=== PATIENT | female | born 1990 | race Hispanic/Latino ===

== ENCOUNTER 2018-10-09 09:17 | Emergency (ER) | payer OTHER, SELFPAY ==
--- NOTE | 2018-10-09 10:07 | ER ---
Nurse's Notes [facility] Name: Bianca Rogers Age: 28 yrs Sex: Female : 1990 Arrival Date: 10/09/2018 Time: 09:21 Bed 16 Private MD: Diagnosis: Influenza due to unidentified influenza virus Presentation: 10/09 09:25 Presenting complaint: Patient states: cough, vomiting and chills that began 3 days ago. ss Pt is concerned she may have the flu because all other members in the household have had the flu recently. Denies fever. Transition of care: patient was not received from another setting of care. Onset of symptoms was October 06, 2018. Risk Assessment: Do you want to hurt yourself or someone else? Patient reports no desire to harm self or others. Initial Sepsis Screen: Does the patient meet any 2 criteria? No. Patient's initial sepsis screen is negative. Does the patient have a suspected source of infection? No. Patient's initial sepsis screen is negative. Care prior to arrival: None. 09:25 Method Of Arrival: Ambulatory ss 09:25 Acuity: EULOGIO 3 Triage Assessment: 09:58 General: Behavior is calm, cooperative. General: Appears in no apparent distress. ls4 10:05 GI: Reports vomiting, not vomitting at this time. : No deficits noted. 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 - Social history:: Smoking status: Patient/guardian denies using tobacco. - Ebola Screening: : Patient denies exposure to infectious person Patient denies travel to an Ebola-affected area in the 21 days before illness onset. Screenin:56 Abuse screen: Denies threats or abuse. Denies injuries from another. Nutritional ls4 screening: No deficits noted. Tuberculosis screening: No symptoms or risk factors identified. Fall Risk None identified. Assessment: 09:57 General: Appears in no apparent distress. Neuro: No deficits noted. Cardiovascular: No ls4 deficits noted. Respiratory: No deficits noted. Musculoskeletal: No deficits noted. 10:04 Pain: Complains of pain in general Pain currently is 0 out of 10 on a pain scale. GI: ls4 Abdomen is non-distended, obese. Vital Signs: 09:26 BP 137 / 90; Pulse 79; Resp 16; Temp 97.5(TE); Pulse Ox 99% on R/A; Weight 79.38 kg; Height 4 ft. 10 in. (147.32 cm); Pain 8/10; 10:23 BP 128 / 70; Pulse 72; Resp 14; Temp 97.8(O); Pulse Ox 99% on R/A; Pain 7/10; ls4 09:26 Body Mass Index 36.57 (79.38 kg, 147.32 cm) ED Course: 09:21 Patient arrived in ED. as 09: Triage completed. ss 09: Arm band placed on right wrist. 09:56 Erica Desir RN is Primary Nurse. ls4 09:56 [facility]. pm1 09:56 Taran Dhillon MD is Attending Physician. pm1 09:56 Patient has correct armband on for positive identification. Bed in low position. Call ls4 light in reach. Side rails up X 1. Verbal reassurance given. 09:56 No provider procedures requiring assistance completed. ls4 10:22 Patient did not have IV access during this emergency room visit. ls4 Administered Medications: No medications were administered Outcome: 10:06 Discharge ordered by . pm1 10:22 Discharged to home ambulatory. ls4 10:22 Condition: good 10:22 Discharge instructions given to patient, Instructed on discharge instructions, follow up and referral plans. medication usage, safety practices, Demonstrated understanding of instructions, follow-up care, medications, Prescriptions given X 2. 10:23 Patient left the ED. ls4 Signatures: Ramila Williamson Shelby, RN RN Jose Marley NP POWER TOOL REPAIR TECHNICIAN pm1 Erica Desir RN RN ls4
--- NOTE | 2018-10-09 10:08 | EDPHYS ---
Physician Documentation [facility] Name: Bianca Rogers Age: 28 yrs Sex: Female : 1990 Arrival Date: 10/09/2018 Time: 09:21 Bed 16 Private MD: ED Physician Taran Dhillon HPI: 10/09 10:23 This 28 yrs old Female presents to ER via Ambulatory with complaints of Flu pm1 like symptoms. 10:23 The patient or guardian reports flu symptoms. Onset: The symptoms/episode pm1 began/occurred 3 day(s) ago. Modifying factors: The symptoms are alleviated by OTC meds, the symptoms are aggravated by nothing. Associated signs and symptoms: Pertinent positives: fever, sore throat, vomiting, Pertinent negatives: chest pain, diarrhea, ear ache, rhinorrhea. Severity of symptoms: in the emergency department the symptoms are unchanged. The patient has not experienced similar symptoms in the past. All her family members have had the flu in the past week. 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 - Social history:: Smoking status: Patient/guardian denies using tobacco. - Ebola Screening: : Patient denies exposure to infectious person Patient denies travel to an Ebola-affected area in the 21 days before illness onset. ROS: 10:23 Eyes: Negative for injury, pain, redness, and discharge. pm1 10:23 Neck: Negative for injury, pain, and swelling, Cardiovascular: Negative for chest pain, palpitations, and edema. 10:23 Back: Negative for injury and pain, : Negative for injury, bleeding, discharge, and swelling, MS/Extremity: Negative for injury and deformity, Skin: Negative for injury, rash, and discoloration, Neuro: Negative for headache, weakness, numbness, tingling, and seizure. 10:23 Constitutional: Positive for body aches, chills, fever. 10:23 ENT: Positive for rhinorrhea, sore throat, Negative for ear pain. 10:23 Respiratory: Positive for cough, Negative for shortness of breath, sputum production, wheezing. 10:23 Abdomen/GI: Positive for nausea and vomiting, Negative for abdominal pain, diarrhea, constipation. Exam: 10:23 Constitutional: This is a well developed, well nourished patient who is awake, alert, pm1 and in no acute distress. Head/Face: Normocephalic, atraumatic. Eyes: Pupils equal round and reactive to light, extra-ocular motions intact. Lids and lashes normal. Conjunctiva and sclera are non-icteric and not injected. Cornea within normal limits. Periorbital areas with no swelling, redness, or edema. ENT: Nares patent. No nasal discharge, no septal abnormalities noted. Tympanic membranes are normal and external auditory canals are clear. Oropharynx with no redness, swelling, or masses, exudates, or evidence of obstruction, uvula midline. Mucous membranes moist. Neck: Trachea midline, no thyromegaly or masses palpated, and no cervical lymphadenopathy. Supple, full range of motion without nuchal rigidity, or vertebral point tenderness. No Meningismus. Chest/axilla: Normal chest wall appearance and motion. Nontender with no deformity. No lesions are appreciated. Cardiovascular: Regular rate and rhythm with a normal S1 and S2. No gallops, murmurs, or rubs. Normal PMI, no JVD. No pulse deficits. Respiratory: Lungs have equal breath sounds bilaterally, clear to auscultation and percussion. No rales, rhonchi or wheezes noted. No increased work of breathing, no retractions or nasal flaring. Abdomen/GI: Soft, non-tender, with normal bowel sounds. No distension or tympany. No guarding or rebound. No evidence of tenderness throughout. Back: No spinal tenderness. No costovertebral tenderness. Full range of motion. Skin: Warm, dry with normal turgor. Normal color with no rashes, no lesions, and no evidence of cellulitis. MS/ Extremity: Pulses equal, no cyanosis. Neurovascular intact. Full, normal range of motion. 10:23 Neuro: Orientation: is normal, Motor: is normal, moves all fours. Vital Signs: 09:26 BP 137 / 90; Pulse 79; Resp 16; Temp 97.5(TE); Pulse Ox 99% on R/A; Weight 79.38 kg; ss Height 4 ft. 10 in. (147.32 cm); Pain 8/10; 10:23 BP 128 / 70; Pulse 72; Resp 14; Temp 97.8(O); Pulse Ox 99% on R/A; Pain 7/10; ls4 09:26 Body Mass Index 36.57 (79.38 kg, 147.32 cm) MDM: 09:56 Patient medically screened. pm1 10:04 Data reviewed: vital signs. Data interpreted: Pulse oximetry: on room air is 99 %. pm1 Interpretation: normal. Counseling: I had a detailed discussion with the patient and/or guardian regarding: the historical points, exam findings, and any diagnostic results supporting the discharge/admit diagnosis, the need for outpatient follow up, to return to the emergency department if symptoms worsen or persist or if there are any questions or concerns that arise at home. Administered Medications: No medications were administered Disposition: 14:16 Co-signature as Attending Physician, Taran Dhillon MD I agree with the assessment and kdr plan of care. Disposition: 10/09/18 10:06 Discharged to Home. Impression: Influenza due to unidentified influenza virus. - Condition is Stable. - Discharge Instructions: Influenza, Adult, Form - Return To Work. - Prescriptions for Zofran 4 mg Oral Tablet - take 1 tablet by ORAL route every 12 hours As needed; 20 tablet. Guaifenesin AC 10- 100 mg/5 mL Oral Liquid - take 10 milliliter by ORAL route every 4 hours As needed; 240 milliliter. - Medication Reconciliation Form, Thank You Letter, Antibiotic Education, Prescription Opioid Use, Work release form form. - Follow up: Emergency Department; When: As needed; Reason: Worsening of condition. Follow up: Private Physician; When: 2 - 3 days; Reason: Recheck today's complaints, Continuance of care, Re-evaluation by your physician. - Problem is new. - Symptoms have improved. Signatures: Taran Dhillon MD MD [facility] Katy Lee RN RN Jose Marley, EZEQUIEL LICENSE ISSUER pm1 Erica Desir, SAMANTHA RN ls4 Corrections: (The following items were deleted from the chart) 10:23 10:06 10/09/2018 10:06 Discharged to Home. Impression: Influenza due to unidentified ls4 influenza virus. Condition is Stable. Forms are Medication Reconciliation Form, Thank You Letter, Antibiotic Education, Prescription Opioid Use. Follow up: Emergency Department; When: As needed; Reason: Worsening of condition. Follow up: Private Physician; When: 2 - 3 days; Reason: Recheck today's complaints, Continuance of care, Re-evaluation by your physician. Problem is new. Symptoms have improved. pm1
[2018-10-09 10:45] VITALS: BP 128/70; TEMP 97.8; O2SAT 99
== END 2018-10-09 10:23 | disposition home or self-care (01) ==
LOC: ER 09:17
DX: J11.1 Influenza due to unidentified influenza virus with other respiratory manifestations (principal)
CPT/HCPCS: 99282

== ENCOUNTER 2022-08-25 17:25 | Emergency (ER) | payer BC, SELFPAY ==
--- OUTSIDE RECORDS SUMMARY | 2022-08-25 17:28 | XMS REPORT | Continuity of Care Document ---
:[address] [facility] t Address [address] [facility] [address] [place] [id number] Care Team Providers Name Role Phone Lauri Bailey Attending Clinician Unavailable Payers Payer Name Policy Type Policy Number Effective Date Expiration Date S ource Problems This patient has no known problems. Allergies, Adverse Reactions, Alerts Allergy Allergy Status Severity Reaction(s) Onset Inactive Treating Comm ents Source Name Type Date Date Clinician No Known DA Active U [facility] Allergie 07-26 [facility] 00:00: [facility] [place] 00 [facility] No Known DA Active U [facility] Allergie 07-26 [facility] 00:00: [facility] [place] 00 [facility] Medications This patient has no known medications. Procedures Procedure Date / Time Performed Performing Clinician Magan glynn [id number] 2020-07-29 00:00:00 [email or web address] [facility] Encounters Start End Encounter Admission Attending Care Care Encounter Source Date/Time Date/Time Type Type Clinicians Facility Department ID 2020-07-29 Inpatient TRICIA Bailey DAYS [id number] [facility] 07:30:00 Lauri Dahl [facility] 2022-05-08 2022-05-08 Outpatient [facility] [id number] Paul 11:26:31 11:26:31 [id number] F Atul 2022-02-09 2022-02-09 Outpatient [facility] Paul 11:04:00 11:04:00 [id number] F Atul Results Test Description Test Time Test Comments Results Result Comments Source COMPREHENSIVE METABOLIC PANEL 2020-08-06 06:20:00 Test Item Value Reference Range Interpretation Comme nts SODIUM (test code = NA) 138 mmol/L 136-145 N Plea se note: New Reference Range May 2020 POTASSIUM (test code = K) 4.2 mmol/L 3.5-5.1 N CHLORIDE (test code = CL) 104 mmol/L 98-[address] ease note: New Reference Range May 2020 CARBON DIOXIDE (test code = 30 mmol/L 20-31 N Please note: New Reference CO2) Range May 2020 GLUCOSE (test code = GLU) 93 mg/dL 74-[address] ease note: New Reference Range May 2020 BLOOD UREA NITROGEN (test 19 mg/dL 9-[address] ease note: New Reference code = BUN) Range May 2020 GLOMERULAR FILTRATION RATE >=60 max estimate >60 The estimated glomerular (test code = GFR) filtration rate is computed usingpatient ra ce, age (>18), sex, and serum creatinine. If anyof the needed data george ments are missing the Lab oratory cannot compute an estimation of the glomerul ar filtration rate. CREATININE (test code = 0.60 mg/dL 0.55-1.02 N Plea se note: New Reference CREAT) Range May 2020 TOTAL PROTEIN (test code = 7.4 g/dL 5.7-8.2 N P lease note: New Reference PROT) Range May 2020 ALBUMIN (test code = ALB) 4.6 g/dL 3.2-4.8 N Pl ease note: New Reference Range May 2020 CALCIUM (test code = CA) 9.7 mg/dL 8.7-10.4 N Ple ase note: New Reference Range May 2020 BILIRUBIN TOTAL (test code 0.2 mg/dL 0.3-1.2 L P lease note: New Reference = BILT) Range May 2020 SGOT/AST (test code = AST) 18 U/L <34 N P lease note: New Reference Range May 2020 SGPT/ALT (test code = ALT) 20 U/L 10-49 N P lease note: New Reference Range May 2020 ALKALINE PHOSPHATASE (test 71 U/L 46-116 N P lease note: New Reference code = ALKP) Range May 2020 VITAMIN B1 (THIAMINE)2020-08-06 06:20:00 Test Item Value Reference Range Interpretation Comments VITAMIN B1 158.4 nmol/L 66.5-200.0 Performed At: B N (THIAMINE) (test [facility] code = VITB1) [address] [id number] ra Griselda FARRIS Ph:[phone] SURGICAL [id number] 08:40:00 Test Item Value Reference Range Interpretation Comments SURGICAL SPECIMENS (test code = SURG) RUN DATE: 08/03/20 [facility] - LAB PAGE 1 RUN TIME: 840 Specimen Inquiry RUN USER: INTERFACE PATIENT: JIMMY OLMOS LOC: [address] B U #: [id number] AGE/SX: 29/ ROOM: [facility] RE07/29/20REG DR: Lauri Bailey MD : [birth year] BED: 1 DIS: 07/30/20 STATUS: DIS IN TLOC: SPEC #: [id number] RECD: 07/29/20 STATUS: BEATRIZ CONWAY #: [id number] HAYLEE: 07/29/[address] [facility] [address]: Lauri Bailey MD ENTERED: 07/29/20 SP TYPE: SURG OTHR DR: Anika,Doc ORDERED: PATHGM5, PATH SPEC, H E STAIN HISTOLOGY: TISSUE ID BLK PCS JORGE LEV / PROCEDURE DISPOSITION ____ ___ ___ ___ ___ STOMACH RESECT A 1 1 TISSUES: A. STOMACH SUBTOTAL RESECTION - Partial Stomach CLINICAL HISTORY Morbid obesity. FINAL DIAGNOSIS STOMACH, PARTIAL GASTRECTOMY: - NO DIAGNOSTIC ABNORMALITY IS IDENTIFIED CPT: 81052 GROSS DESCRIPTION Received in formalin labeled with the patient's name, medical record number, and "partial stomach" is an unopened 20.0 x 4.0 cm segment of stomach. The omentum is absent. The lesser curvature has a full-length staple line. The serosa is smooth pink. The mucosa does not have any discrete lesions. Machine I Coremaker sections are submitted in cassette A. /annette MICROSCOPIC DESCRIPTION Performed. -- Signed SIGNATURE ON FILE Rahel Gonzalez MD 08/03/20 [id number] END OF REPORT BASIC METABOLIC [id number] 06:30:00 Test Item Value Reference Range Interpretation Comments SODIUM (test code 136 mmol/L 136-145 N Please not e: New = NA) Reference Range May 2020 POTASSIUM (test 3.7 mmol/L 3.5-5.1 N code = K) CHLORIDE (test 105 mmol/L 98-107 N Please note: New code = CL) Reference Range May 2020 CARBON DIOXIDE 24 mmol/L 20-31 N Please note: New (test code = CO2) Reference Range May 2020 GLUCOSE (test code 84 mg/dL 74-106 N Please no te: New = GLU) Reference Range May 2020 BLOOD UREA 10 mg/dL 9-23 N Please note: Ne w NITROGEN (test Reference Ran ge Feb code = BUN) 2020 GLOMERULAR >=60 max >60 The estimated FILTRATION RATE estimate glomerular (test code = GFR) filtration rate is computed usingpatient ra ce, age (>18), sex, and serum creatinin e. If anyof the neede d data elements a re missing the Laboratory lance ot compute an estimation of t he glomerular filtration rate . CREATININE (test 0.60 mg/dL 0.55-1.02 N Please note : New code = CREAT) Reference Rang e May 2020 CALCIUM (test code 8.7 mg/dL 8.7-10.4 N Please no te: New = CA) Reference Range May 2020 CBC W/AUTO [id number] 05:48:00 Test Item Value Reference Range Interpretation Comments WHITE BLOOD CELL (test code = 9.9 x10 3/uL 4.8-10.8 N WBC) RED BLOOD CELL (test code = 4.14 x10 6/uL 4.20-5.40 L RBC) HEMOGLOBIN (test code = HGB) 11.4 g/dL 12.0-16.0 L HEMATOCRIT (test code = HCT) 35.2 % 37.0-47.0 L MEAN CELL VOLUME (test code = 85.0 fL 81.0-99.0 N MCV) MEAN CELL HGB (test code = MCH) 27.5 pg 27-31 N MEAN CELL HGB CONCENTRATION 32.4 G/DL 33-36.5 L (test code = MCHC) RED CELL DISTRIBUTION WIDTH 13.5 % 12.9-16.9 N (test code = RDW) PLATELET COUNT (test code = 328 x10 3/uL 150-440 N PLT) MEAN PLATELET VOLUME (test code 10.5 fL 8.9-12.4 N = MPV) NEUTROPHIL % (test code = NT%) 63.3 % 42.2-75.2 N LYMPHOCYTE % (test code = LY%) 30.8 % 20.5-51.1 N MONOCYTE % (test code = MO%) 5.4 % 1.7-9.3 N EOSINOPHIL % (test code = EO%) 0.1 % 0.0-7.0 N BASOPHIL % (test code = BA%) 0.1 % 0-2.5 N NEUTROPHIL # (test code = NT#) 6.26 x10 3/uL 1.80-7.70 N LYMPHOCYTE # (test code = LY#) 3.04 x10 3/uL 1.00-4.80 N MONOCYTE # (test code = MO#) 0.53 x10 3/uL 0.00-0.80 N EOSINOPHIL # (test code = EO#) 0.01 x10 3/uL 0.00-0.45 N BASOPHIL # (test code = BA#) 0.01 x10 3/uL 0.0-0.20 N UA RFLX MICR CULT IF [id number] 06:58:00 Test Item Value Reference Range Interpretation Comments UA COLOR (test code = COLU) YELLOW DISCRIPT YELLOW UA APPEARANCE (test code = CLEAR DISCRIPT CLEAR APPU) UA GLUCOSE DIPSTICK (test NEGATIVE mg/dL NEGATIVE code = DGLUU) UA BILIRUBIN DIPSTICK (test SMALL NEGATIVE A code = BILU) UA KETONE DIPSTICK (test code 15 mg/dL NEGATIVE A = KETU) UA SPECIFIC GRAVITY (test >=1.030 1.005-1.030 code = SGU) UA BLOOD DIPSTICK (test code NEGATIVE NEGATIVE = TENNILLE) UA PH DIPSTICK (test code = 6.0 5.0-9.0 NENA) UA PROTEIN DIPSTICK (test NEGATIVE mg/dL NEGATIVE code = PROU) UA UROBILINOGEN DIPSTICK 0.2 mg/dL 0.2-1.0 (test code = URO) UA NITRITE DIPSTICK (test NEGATIVE NEGATIVE code = FABIANA) UA LEUKOCYTE ESTERASE TRACE NEGATIVE A DIPSTICK (test code = LEUU) UA WBC (test code = WBCU) 6-10 #WBC/HPF 0-2 A UA RBC (test code = RBCU) 0-2 #RBC/HPF 0-2 UA BACTERIA (test code = 1+ /HPF NONE-TRACE A BACU) UA SQUAMOUS CELLS (test code 2+ /LPF NONE-TRACE A = SQU) UA MUCUS (test code = MUCU) 1+ /LPF NONE SEEN A UA AMORPHOUS SEDIMENT (test PRESENT /HPF NONE SEEN code = AMORU) Indication for culture: Dysuria/FrequencyUA RFLX MICR CULT IF INDICATED 2020-07-29 06:42:00 Test Item Value Reference Range Interpretation Comments UA COLOR (test code = COLU) YELLOW DISCRIPT YELLOW UA APPEARANCE (test code = CLEAR DISCRIPT CLEAR APPU) UA GLUCOSE DIPSTICK (test NEGATIVE mg/dL NEGATIVE code = DGLUU) UA BILIRUBIN DIPSTICK (test SMALL NEGATIVE A code = BILU) UA KETONE DIPSTICK (test code 15 mg/dL NEGATIVE A = KETU) UA SPECIFIC GRAVITY (test >=1.030 1.005-1.030 code = SGU) UA BLOOD DIPSTICK (test code NEGATIVE NEGATIVE = TENNILLE) UA PH DIPSTICK (test code = 6.0 5.0-9.0 NENA) UA PROTEIN DIPSTICK (test NEGATIVE mg/dL NEGATIVE code = PROU) UA UROBILINOGEN DIPSTICK 0.2 mg/dL 0.2-1.0 (test code = URO) UA NITRITE DIPSTICK (test NEGATIVE NEGATIVE code = FABIANA) UA LEUKOCYTE ESTERASE TRACE NEGATIVE A DIPSTICK (test code = LEUU) UA WBC (test code = WBCU) #WBC/HPF 0-2 UA RBC (test code = RBCU) #RBC/HPF 0-2 UA BACTERIA (test code = /HPF NONE-TRACE BACU) UA SQUAMOUS CELLS (test code /LPF NONE-TRACE = SQU) Indication for culture: Dysuria/FrequencyNovel Coronavirus 2018 Inhouse 2020-07-28 00:07:00 Test Item Value Reference Range Interpretation Comments Novel Coronavirus Not Detected Not Detected Testing wa s performed 2018 Inhouse (test using the [employer] code = COVNONPUI) SARS-CoV-2 assay.This nucleic acid amplification t est was developed and itsperformance characteristics determined by Amanda ramirez. Nucleic acid amplification t ests include RT-PCR and TMA. This test has n ot been FDA cleared ora pproved. This test has b een authorized by William GARRETT under anEmergency Use Authorization ( EUA). This test is onlyauthorized for the duration of long e the declaration thatcircumstanc es exist justifying the authorization o f theemergency us e of in vitro diagnosti c tests for detection [id number] vi satya and/or diagnosi s of COVID-19 infect ionunder section 564(b)( 1) of the Act, 21 U.S .C. 360bbb-3(b)(1), unless the authorizati on is terminated or revokedsooner.W hen diagnostic test ing is negative, the possibility of afalse negative result should be considered i n the contextof a pat ient's recent exposure s and the presence of clinical signs and sympt oms consistent with COVID-19. Anind ividual without symptom s of COVID-19 and wh o is notshedding ELVIA S-CoV-2 virus would exp ect to have a negative (not detected) resul t in this assay. - XR CHEST 1 [id number] 13:23:00 [facility] 1990 Sex: FPatient Name: JIMMY OLMOS Unit No: [id number] EXAMS: CPT CODE: [id number] XR CHEST 1 V 97289 EXAM: XR Chest 1 View INDICATION: PREOP LOCATION CODE: A1 COMPARISON: None available. TECHNIQUE: Frontal view of the chest was obtained. FINDINGS: The lungs are clear. There is no pleural effusion or pneumothorax. The cardiomediastinal silhouette is unremarkable. No acute osseous abnormality is identified. IMPRESSION: No acute cardiopulmonary abnormality. at 1323 Reported and signed by: SURI LUNDY M.D. CC: Lauri Bailey MD Technologist: Mohit Chan Time: DAP (Gy m2): Air Kerma (mGy): Trscr Dt/Tm: 07/26/2020 (1323) by:[email or web address] Printed Date/Time: 07/26/2020 (1326) Name: JIMMY OLMOS [facility] Phys: [id number] - Lauri Bailey MD [address] : 1990 Age:29 Sex: F [address] [id number] Loc: P.SRG Exam Date: 07/26/2020 Status: PRE IN PH: FAX: PAGE 1 Signed ReportVITAMIN D [id number] 12:49:00 Test Item Value Reference Range Interpretation Comments VITAMIN D 18.20 ng/mL 7-44.0 N Please note: N ew 25-HYDROXY (test Reference R yo May 2020 code = VITD25) INTERPRETATIV E DATA:Suggester guidelines for Vitamin D Levels in serum Vitamin D Status Range, Adult Range, Pediatri c ng/mL ng/mLDeficiency <20 <15Insufficienc y 20-<30 15-<20 Suffcien cy 30-100 20-100 COMPREHENSIVE METABOLIC [id number] 12:34:00 Test Item Value Reference Range Interpretation Comments SODIUM (test code = 138 mmol/L 136-145 N Please n ote: New NA) Reference Range May 2020 POTASSIUM (test 4.2 mmol/L 3.5-5.1 N code = K) CHLORIDE (test code 104 mmol/L 98-107 N Please n ote: New = CL) Reference Range May 2020 CARBON DIOXIDE 30 mmol/L 20-31 N Please note: New (test code = CO2) Reference Range May 2020 GLUCOSE (test code 93 mg/dL 74-106 N Please no te: New = GLU) Reference Range May 2020 BLOOD UREA NITROGEN 19 mg/dL 9-23 N Please n ote: New (test code = BUN) Reference Range May 2020 GLOMERULAR >=60 max >60 The estimated FILTRATION RATE estimate glomerular (test code = GFR) filtration rate is computed usingpatient ra ce, age (>18), sex, and serum creatinin e. If anyof the ne eded data elements a re missing the Laboratory lance ot compute an estimation of t he glomerular filtration rate . CREATININE (test 0.60 mg/dL 0.55-1.02 N Please note : New code = CREAT) Reference Rang e May 2020 TOTAL PROTEIN (test 7.4 g/dL 5.7-8.2 N Please n ote: New code = PROT) Reference Range May 2020 ALBUMIN (test code 4.6 g/dL 3.2-4.8 N Please no te: New = ALB) Reference Range May 2020 CALCIUM (test code 9.7 mg/dL 8.7-10.4 N Please no te: New = CA) Reference Range May 2020 BILIRUBIN TOTAL 0.2 mg/dL 0.3-1.2 L Please note: New (test code = BILT) Reference Range May 2020 SGOT/AST (test code 18 U/L <34 N Please n ote: New = AST) Reference Range May 2020 SGPT/ALT (test code 20 U/L 10-49 N Please n ote: New = ALT) Reference Range May 2020 ALKALINE 71 U/L 46-116 N Please note: Ne w PHOSPHATASE (test Reference Range Feb code = ALKP) 2020 VITAMIN B1 (THIAMINE)2020-07-26 12:34:00 Test Item Value Reference Range Interpretation Comments VITAMIN B1 (THIAMINE) (test code = VITB1) UR HCG [id number] 12:03:00 Test Item Value Reference Range Interpretation Comments UR HCG QUAL (test code = HCGQLU) NEGATIVE NEGATIVE PROTHROMBIN [id number] 11:55:00 Test Item Value Reference Range Interpretation Comments PROTHROMBIN TIME 12.8 SECONDS 10.3-12.9 N PATIENT (test code = PTP) INTERNATIONAL 1.13 INR UNIT 0.9-1.11 H The INR is us eful only NORMAL RATIO (test for monit oring code = INR) anticoagulant therapy.It may be unreliable in t he initial phase o f antigoagulation and in unstable patien ts. Indication for Anticoagulation Recommended INR 1. Prevention of v enous thomboembolism 2.0-3.0in high- risk patients; treat ment of venousthrombosi s and pulmonary embol ism aftera course o f heparin; preven tion of systemicembolis m in a variety of cond itions, including atria l fibrillation an d prothetic tissu e heart valves, 2. Pros thetic mechanical hear t valves; 2.5-3.5recurren t systemic emboli sm. THROMBOPLASTIN TIME [id number] 11:55:00 Test Item Value Reference Range Interpretation Comments THROMBOPLASTIN TIME 31.9 SECONDS 23.8-34.8 N INTERPRE TATIVE PARTIAL (test code = DATA: erapeutic PTT) range: Unfractionated heparin:55 - 80 seconds Argatroban:1.5 to 3 times the basel ine PTT CBC W/AUTO [id number] 11:37:00 Test Item Value Reference Range Interpretation Comments WHITE BLOOD CELL (test code = 8.8 x10 3/uL 4.8-10.8 N WBC) RED BLOOD CELL (test code = 4.85 x10 6/uL 4.20-5.40 N RBC) HEMOGLOBIN (test code = HGB) 13.2 g/dL 12.0-16.0 N HEMATOCRIT (test code = HCT) 40.9 % 37.0-47.0 N MEAN CELL VOLUME (test code = 84.3 fL 81.0-99.0 N MCV) MEAN CELL HGB (test code = MCH) 27.2 pg 27-31 N MEAN CELL HGB CONCENTRATION 32.3 G/DL 33-36.5 L (test code = MCHC) RED CELL DISTRIBUTION WIDTH 13.4 % 12.9-16.9 N (test code = RDW) PLATELET COUNT (test code = 359 x10 3/uL 150-440 N PLT) MEAN PLATELET VOLUME (test code 10.3 fL 8.9-12.4 N = MPV) NEUTROPHIL % (test code = NT%) 65.7 % 42.2-75.2 N LYMPHOCYTE % (test code = LY%) 29.8 % 20.5-51.1 N MONOCYTE % (test code = MO%) 3.8 % 1.7-9.3 N EOSINOPHIL % (test code = EO%) 0.2 % 0.0-7.0 N BASOPHIL % (test code = BA%) 0.2 % 0-2.5 N NEUTROPHIL # (test code = NT#) 5.78 x10 3/uL 1.80-7.70 N LYMPHOCYTE # (test code = LY#) 2.62 x10 3/uL 1.00-4.80 N MONOCYTE # (test code = MO#) 0.33 x10 3/uL 0.00-0.80 N EOSINOPHIL # (test code = EO#) 0.02 x10 3/uL 0.00-0.45 N BASOPHIL # (test code = BA#) 0.02 x10 3/uL 0.0-0.20 N
[2022-08-25 18:28] LABS: Urine Bacteria None Seen /HPF (<20); Urine Bilirubin NEGATIVE (Negative); Urine Blood Negative (Negative); Urine Clarity Clear (Clear); Urine Color Light-Yellow (Yellow); Urine Glucose NEGATIVE (Negative); Urine Mucus Slight /HPF (None Seen); Urine Protein NEGATIVE (Negative); Urine RBC None Seen /HPF (None Seen); Urine Urobilinogen Normal (Normal); Urine pH 6.5 (5.0-7.0)
[2022-08-25] MEDS ORDERED: LIDOCAINE 4% PATCH ONE (18:28)
[2022-08-25] MEDS ORDERED: KETOROLAC 30 MG/ML INJ ONE (18:28)
--- NOTE | 2022-08-25 19:38 | EDPHYS ---
Physician Documentation [facility] Name: Bianca Rogers Age: 31 yrs Sex: Female : 1990 Arrival Date: 08/25/2022 Time: 17:25 Bed 5 Private MD: NISHI Physician Cordell Roth HPI: 08/25 18:10 This 31 yrs old Female presents to ER via Ambulatory with complaints of Back cp Pain. 18:10 The patient presents with pain that is acute, with no known mechanism of injury. The cp symptoms are located in the right subscapular area and right mid back. Onset: The symptoms/episode began/occurred 1 week(s) ago. The pain does not radiate. Associated signs and symptoms: Pertinent negatives: abdominal pain, chest pain, dysuria, fever, headache, hematuria, incontinence, numbness, weakness. The problem was sustained from unknown cause. Modifying factors: the patient symptoms are aggravated by movement. Severity of symptoms: in the emergency department the symptoms are unchanged, despite home interventions. 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 - Social history:: Smoking status: Patient denies any tobacco usage or history of. ROS: 18:15 Constitutional: Negative for body aches, chills, fever, poor PO intake. cp 18:15 Eyes: Negative for injury, pain, redness, and discharge. cp 18:15 ENT: Negative for drainage from ear(s), ear pain, sore throat, difficulty swallowing, difficulty handling secretions. 18:15 Cardiovascular: Negative for chest pain, edema, palpitations. 18:15 Respiratory: Negative for cough, shortness of breath, wheezing. 18:15 Abdomen/GI: Negative for abdominal pain, nausea, vomiting, and diarrhea, constipation, bowel incontinence. 18:15 Back: Positive for pain at rest, pain with movement, of the right subscapular area and right mid back. 18:15 : Negative for urinary symptoms, bladder incontinence. 18:15 Skin: Negative for rash. 18:15 Neuro: Negative for altered mental status, headache, numbness, weakness. 18:15 All other systems are negative. Exam: 18:20 Constitutional: The patient appears in no acute distress, alert, awake, non-toxic, well cp developed, well nourished, uncomfortable. 18:20 Head/Face: Normocephalic, atraumatic. cp 18:20 Eyes: Periorbital structures: appear normal, Conjunctiva: normal, no exudate, no injection, Sclera: no appreciated abnormality, Lids and lashes: appear normal, bilaterally. 18:20 ENT: External ear(s): are unremarkable, Nose: is normal, Mouth: Lips: moist, Oral mucosa: pink and intact, moist, Posterior pharynx: is normal, airway is patent, no erythema, no exudate. 18:20 Neck: ROM/movement: is normal, is supple, without pain, no range of motions limitations. 18:20 Chest/axilla: Inspection: normal. 18:20 Cardiovascular: Rate: normal, Rhythm: regular. 18:20 Respiratory: the patient does not display signs of respiratory distress, Respirations: normal, no use of accessory muscles, no retractions, labored breathing, is not present. 18:20 Abdomen/GI: Inspection: abdomen appears normal, Palpation: abdomen is soft and non-tender, in all quadrants. 18:20 Back: pain, that is moderate, of the right subscapular area and right mid back, ROM is painful, with all movement. 18:20 Skin: cellulitis, is not appreciated, no rash present. 18:20 Neuro: Orientation: to person, place \T\ time. Mentation: is normal, Motor: moves all fours, strength is normal, Sensation: is normal. Vital Signs: 17:44 BP 142 / 98; Pulse 63; Resp 16; Temp 98.3(O); Pulse Ox 100% on R/A; Height 4 ft. 10 in. vg1 ; MDM: 17:52 Patient medically screened. estuardo 18:30 Differential diagnosis: Basilar Pneumonia Cholelithiasis Pyelonephritis ruptured disc, cp Ureterolithiasis vertebral fracture, muscle strain. 19:37 Data reviewed: vital signs, nurses notes, lab test result(s), radiologic studies, plain cp films. Independent interpretation of the following test(s) in the Emergency Department X-Ray: My interpretation is chest image negative for infiltrates. 19:37 Test considered but Not performed: Labs: cbc, bmp. CT: chest, abdomen/pelvis. cp Counseling: I had a detailed discussion with the patient and/or guardian regarding: the historical points, exam findings, and any diagnostic results supporting the discharge/admit diagnosis, lab results, radiology results, to return to the emergency department if symptoms worsen or persist or if there are any questions or concerns that arise at home. Response to treatment: the patient's symptoms have markedly improved after treatment, and as a result, I will discharge patient. 08/25 18:06 Order name: Urinalysis W/Microscopic; Complete Time: 18:35 cp 08/25 18:35 Interpretation: Reviewed. cp 08/25 18:06 Order name: PREGU; Complete Time: 18:35 cp 08/25 19:00 Order name: XRAY Chest (1 view) cp Administered Medications: 18:24 Drug: Lidoderm Topical Patch 5 % (700 mg/patch) 1 patches Route: Topical; Site: hb affected area; 18:59 Follow up: Response: No adverse reaction hb 18:59 Drug: Ketorolac IM 30 mg Route: IM; Site: left deltoid; hb Disposition Summary: 08/25/22 19:38 Discharge Ordered Location: Home cp Problem: new cp Symptoms: have improved cp Condition: Stable cp Diagnosis - Dorsalgia, unspecified cp Followup: cp - With: Private Physician - When: 2 - 3 days - Reason: Recheck today's complaints Discharge Instructions: - Discharge Summary Sheet cp - Acute Back Pain, Adult cp Forms: - Medication Reconciliation Form cp - Thank You Letter cp - Antibiotic Education cp - Prescription Opioid Use cp - Work release form vc1 Prescriptions: - Lidoderm 5 % Topical adhesive patch, medicated - apply 1 patch by TOPICAL route daily As needed leave on most painful area for cp up to 12 hrs; 10 patch; Refills: 0, Product Selection Permitted - Cyclobenzaprine 10 mg Oral Tablet - take 1 tablet by ORAL route every 8 hours As needed; 30 tablet; Refills: 0, cp Product Selection Permitted - Diclofenac Sodium 75 mg Oral Tablet Sustained Release - take 1 tablet by ORAL route 2 times per day; 30 tablet; Refills: 0, Product cp Selection Permitted Signatures: Dispatcher [employer] Cordell Araujo MD MD cha Page, Corey, PA PA cp Lori Hong, RN RN Izzy Pollack RN RN vg1 Corrections: (The following items were deleted from the chart) 08/26 16:14 16:12 Test considered but Not performed: Labs: cbc, bmp. CT: chest, abdomen/pelvis. cp cp 16:14 16:12 Counseling: I had a detailed discussion with the patient and/or guardian cp regarding: the historical points, exam findings, and any diagnostic results supporting the discharge/admit diagnosis, lab results, radiology results, to return to the emergency department if symptoms worsen or persist or if there are any questions or concerns that arise at home, cp 16:14 16:12 Response to treatment: the patient's symptoms have markedly improved after cp treatment, and as a result, I will discharge patient, cp
--- NOTE | 2022-08-25 19:38 | ER ---
Nurse's Notes [facility] Name: Bianca Rogers Age: 31 yrs Sex: Female : 1990 Arrival Date: 08/25/2022 Time: 17:25 Bed 5 Private MD: Diagnosis: Dorsalgia, unspecified Presentation: 08/25 17:44 Chief complaint: Patient states: back pain x 1 week, denies any s/s of urine issues, vg1 last BM was today. Coronavirus screen: Vaccine status: Patient reports receiving the 2nd dose of the covid vaccine. Client denies travel out of the [place] in the last 14 days. Ebola Screen: Patient negative for fever greater than or equal to 101.5 degrees Fahrenheit, and additional compatible Ebola Virus Disease symptoms Patient denies exposure to infectious person. Patient denies travel to an Ebola-affected area in the 21 days before illness onset. Initial Sepsis Screen: Does the patient meet any 2 criteria? No. Patient's initial sepsis screen is negative. Does the patient have a suspected source of infection? No. Patient's initial sepsis screen is negative. Risk Assessment: Do you want to hurt yourself or someone else? Patient reports no desire to harm self or others. Onset of symptoms was August 18, 2022. 17:44 Method Of Arrival: Ambulatory vg1 17:44 Acuity: EULOGIO 3 vg1 Triage Assessment: 17:46 General: Appears in no apparent distress. uncomfortable, Behavior is calm, cooperative. vg1 Pain: Complains of pain in back Pain currently is 5 out of 10 on a pain scale. Musculoskeletal: Circulation, motion, and sensation intact. [employer]: 17:46 LMP 08/06/2022 vg1 Historical: - Allergies: 17:46 No Known Allergies; vg1 - Home Meds: 17:46 None [Active]; vg1 - PMHx: 17:46 None; vg1 - PSHx: 17:46 None; vg1 - Immunization history:: Client reports receiving the 2nd dose of the Covid vaccine. - Social history:: Smoking status: Patient denies any tobacco usage or history of. Screenin:25 [facility] ED Fall Risk Assessment (Adult) Score/Fall Risk Level 0 - 2 = Low Risk hb Oriented to surroundings, Maintained a safe environment. Abuse screen: Denies threats or abuse. Denies injuries from another. Nutritional screening: No deficits noted. Tuberculosis screening: No symptoms or risk factors identified. Assessment: 18:25 General: Appears in no apparent distress. Behavior is calm, cooperative. Pain: Pain hb currently is 7 out of 10 on a pain scale. Neuro: Level of Consciousness is awake, alert, obeys commands, Oriented to person, place, time, situation. Cardiovascular: Patient's skin is warm and dry. Respiratory: Respiratory effort is even, unlabored, Respiratory pattern is regular, symmetrical. GI: No signs and/or symptoms were reported involving the gastrointestinal system. : No signs and/or symptoms were reported regarding the genitourinary system. EENT: No signs and/or symptoms were reported regarding the EENT system. Derm: Skin is pink, warm \T\ dry. Musculoskeletal: Reports RIGHT FLANK PAIN. Vital Signs: 17:44 BP 142 / 98; Pulse 63; Resp 16; Temp 98.3(O); Pulse Ox 100% on R/A; Height 4 ft. 10 in. vg1 ; ED Course: 17:27 Patient arrived in ED. ts1 17:42 Cordell Sarkar PA is PHCP. cp 17:42 Cordell Roth MD is Attending Physician. cp 17:46 Triage completed. vg1 17:46 Arm band placed on. vg1 18:24 Lori Hong, RN is Primary Nurse. hb 18:26 Patient has correct armband on for positive identification. hb 19:49 No provider procedures requiring assistance completed. Patient did not have IV access vc1 during this emergency room visit. 19:53 XRAY Chest (1 view) In Process Unspecified. EDMS Administered Medications: 18:24 Drug: Lidoderm Topical Patch 5 % (700 mg/patch) 1 patches Route: Topical; Site: hb affected area; 18:59 Follow up: Response: No adverse reaction hb 18:59 Drug: Ketorolac IM 30 mg Route: IM; Site: left deltoid; hb Medication: 18:26 VIS not applicable for this client. hb Outcome: 19:38 Discharge ordered by . cp 19:49 Discharged to home ambulatory. vc1 19:49 Condition: good 19:49 Discharge instructions given to patient, Instructed on discharge instructions, follow up and referral plans. medication usage, Demonstrated understanding of instructions, follow-up care, medications, Prescriptions given X 3. 19:50 Patient left the ED. vc1 Signatures: Dispatcher [employer] EDMS Cordell Sarkar PA PA cp Baxter, Heather, RN RN hb Garcia, Victoria, RN RN vg1 Elvi Syed RN RN vc1 Genie Menezes PAS PAS ts1
[2022-08-25 19:55] VITALS: BP 142/98; TEMP 98.3; O2SAT 100
--- NOTE | 2022-08-25 20:10 | RAD REPORT ---
EXAM DESCRIPTION: RAD - Chest Single View - 08/25/2022 7:51 pm CLINICAL HISTORY: back pain COMPARISON: No comparisons FINDINGS: Lines: None. Lungs: No evidence of edema or pneumonia. Pleural: No significant pleural effusions or pneumothorax. Cardiac: The heart size is within normal limits. Mediastinum: Within normal limits. Bones: No acute fractures. Other: None IMPRESSION: No acute cardiopulmonary disease.
== END 2022-08-25 19:50 | disposition home or self-care (01) ==
LOC: ER 17:25
DX: M54.9 Dorsalgia, unspecified (principal)
CPT/HCPCS: 81001; 81025; 71045; 96372; 99284; J2001

== ENCOUNTER 2023-12-16 20:55 | Emergency (ER) | payer BC ==
--- OUTSIDE RECORDS SUMMARY | 2023-12-16 20:58 | XMS REPORT | Continuity of Care Document ---
Author Name Unknown Address [address] [facility] [address] [place] [address] [facility] Address [address] [facility] [address] [place] [address] Care Team Providers Care [facility] Reverse Winder Name Role Phone Lauri Bailey Attending Clinician Unavailable Payers Payer Name Policy Type Policy Number Effective Date Expirati on Date Source Allergies, Adverse Reactions, Alerts Allergy Name Allergy Type Status Severity Reaction(s) Onset Date Inactive Date Treating Clinician Comments Source No Known Allergie s DA Active U 07-26 00:00: 00 [facility] No Known Allergie s DA Active U 07-26 00:00: 00 [facility] Procedures Procedure Date / Time Performed Performing Clinicia n Source [id number] 2020-07-29 00:00:00 PRIJO.[email or web address] [facility] Encounters Start Date/Time End Date/Time Encounter Type Admission Type Attending Clinicians Care Facility Care Department Encounter ID Source 2020-07-29 07:30:00 Inpatient Lauri Bailey [facility] DAYS [id number] [facility] 2022-05-08 11:26:31 2022-05-08 11:26:31 Outpatient SFA [id number] Paul Pollard 2022-02-09 11:04:00 2022-02-09 11:04:00 Outpatient [facility] [id number] Paul Pollard Results Test Description Test Time Test Comments Results Result Co mments Source VITAMIN B1 (THIAMINE)2020-08-06 06:20:00* Test Item Value Reference Range Interpretation Comme nts VITAMIN B1 (THIAMINE) (test code = VITB1) 158.4 nmol/L 66.5-200.0 Performed At: [facility] [address] [id number] Sanjai MD Ph:[phone] SURGICAL [id number] 08:40:00* Test Item Value Reference Range Interpretation Comme nts SURGICAL SPECIMENS (test code = SURG) RUN DATE: 08/03/20 [facility] LAB PAGE 1 RUN TIME: 0841 Specimen Inquiry RUN USER: INTERFACE PATIENT: JIMMY ROGERS LOC: P.5N POD B U #: [id number] AGE/SX: 29/ ROOM: [facility] RE07/29/20REG DR: Lauri Bailey MD : 86 BED: 1 DIS: 07/30/20 STATUS: DIS IN TLOC: SPEC #: [id number] RECD: 07/29/20 STATUS: BEATRIZ CONWAY #: [id number] HAYLEE: 07/29/[address] [facility] [address]: Lauri Bailey MD ENTERED: 07/29/20 [...] - NO DIAGNOSTIC ABNORMALITY IS IDENTIFIED CPT: 39307 GROSS DESCRIPTION Received in formalin labeled with the patient's name, medical record number, and "partial stomach" is an unopened 20.0 x 4.0 cm segment of stomach. The omentum is absent. The lesser curvature has a full-length staple line. The serosa is smooth pink. The mucosa does not have any discrete lesions. Orthopedic Designer sections are submitted in cassette A. /annette MICROSCOPIC DESCRIPTION Performed. -- Signed SIGNATURE ON FILE Rahel Gonzalez MD 08/03/20 8153 END OF REPORT BASIC METABOLIC [id number] 06:30:00* Test Item Value Reference Range Interpretation Comme nts SODIUM (test code = NA) 136 mmol/L 136-145 N Please note: New Reference Range May 2020 POTASSIUM (test code = K) 3.7 mmol/L 3.5-5.1 N CHLORIDE (test code = CL) 105 mmol/L 98-107 N Please note: New Reference Range May 2020 CARBON DIOXIDE (test code = CO2) 24 mmol/L 20-31 N Please note: N ew Reference Range May 2020 GLUCOSE (test code = GLU) 84 mg/dL 74-106 N Please note: New Reference Range May 2020 BLOOD UREA NITROGEN (test code = BUN) 10 mg/dL 9-23 N Please note: New Reference Range May 2020 GLOMERULAR FILTRATION RATE (test code = GFR) >=60 max estimate >60 The estimated glomerular filtration rate is computed usingpatient race, age (>18), sex, and serum creatinine. If anyof the needed data elements are missing the Laboratory cannot compute an estimation of the glomerular filtration rate. CREATININE (test code = CREAT) 0.60 mg/dL 0.55-1.02 N Please note: New Reference Range May 2020 CALCIUM (test code = CA) 8.7 mg/dL 8.7-10.4 N Please note: New Reference Range May 2020 CBC W/AUTO [id number] 05:48:00* Test Item Value Reference Range Interpretation Comme nts WHITE BLOOD CELL (test code = WBC) 9.9 x10 3/uL 4.8-10.8 N RED BLOOD CELL (test code = RBC) 4.14 x10 6/uL 4.20-5.40 L HEMOGLOBIN (test code = HGB) 11.4 g/dL 12.0-16.0 L HEMATOCRIT (test code = HCT) 35.2 % 37.0-47.0 L MEAN CELL VOLUME (test code = MCV) 85.0 fL 81.0-99.0 N MEAN CELL HGB (test code = MCH) 27.5 pg 27-31 N MEAN CELL HGB CONCENTRATION (test code = MCHC) 32.4 G/DL 33-36.5 L RED CELL DISTRIBUTION WIDTH (test code = RDW) 13.5 % 12.9-16.9 N PLATELET COUNT (test code = PLT) 328 x10 3/uL 150-440 N MEAN PLATELET VOLUME (test c ode = MPV) 10.5 fL 8.9-12.4 N NEUTROPHIL % (test code = NT%) 63.3 [...] 0.0-0.20 N UA RFLX MICR CULT IF [id number] 06:58:00* Test Item Value Reference Range Interpretation Comme nts UA COLOR (test code = COLU) YELLOW DISCRIPT YELLOW UA APPEARANCE (test code = APPU) CLEAR DISCRIPT CLEAR UA GLUCOSE DIPSTICK (test code = DGLUU) NEGATIVE mg/dL NEGATIVE UA BILIRUBIN DIPSTICK (test code = BILU) SMALL NEGATIVE A UA KETONE DIPSTICK (test cod e = KETU) 15 mg/dL NEGATIVE A UA SPECIFIC GRAVITY (test code = SGU) >=1.030 1.005-1.030 UA BLOOD DIPSTICK (test code = TENNILLE) NEGATIVE NEGATIVE UA PH DIPSTICK (test code = NENA) 6.0 5.0-9.0 UA PROTEIN DIPSTICK (test code = PROU) NEGATIVE mg/dL NEGATIVE UA UROBILINOGEN DIPSTICK (test code = URO) 0.2 mg/dL 0.2-1.0 UA NITRITE DIPSTICK (test code = FABIANA) NEGATIVE NEGATIVE UA LEUKOCYTE ESTERASE DIPSTICK (test code = LEUU) TRACE NEGATIVE A UA WBC (test code = WBCU) 6-10 #WBC/HPF 0-2 A UA RBC (test code = RBCU) 0-2 #RBC/HPF 0-2 UA BACTERIA (test code = BACU) 1+ /HPF NONE-TRACE A UA SQUAMOUS CELLS (test code = SQU) 2+ /LPF NONE-TRACE A UA MUCUS (test code = MUCU) 1+ /LPF NONE SEEN A UA AMORPHOUS SEDIMENT (test code = AMORU) PRESENT /HPF NONE SEEN Indication for culture: Dysuria/FrequencyUA RFLX MICR CULT IF INDICATED 2020-07-29 06:42:00* Test Item Value Reference Range Interpretation Comme nts UA COLOR (test code = COLU) YELLOW DISCRIPT YELLOW UA APPEARANCE (test code = APPU) CLEAR DISCRIPT CLEAR UA GLUCOSE DIPSTICK (test code = DGLUU) NEGATIVE mg/dL NEGATIVE UA BILIRUBIN DIPSTICK (test code = BILU) SMALL NEGATIVE A UA KETONE DIPSTICK (test cod e = KETU) 15 mg/dL NEGATIVE A UA SPECIFIC GRAVITY (test code = SGU) >=1.030 1.005-1.030 UA BLOOD DIPSTICK (test code = TENNILLE) NEGATIVE NEGATIVE UA PH DIPSTICK (test code = NENA) 6.0 5.0-9.0 UA PROTEIN DIPSTICK (test code = PROU) NEGATIVE mg/dL NEGATIVE UA UROBILINOGEN DIPSTICK (test code = URO) 0.2 mg/dL 0.2-1.0 UA NITRITE DIPSTICK (test code = FABIANA) NEGATIVE NEGATIVE UA LEUKOCYTE ESTERASE DIPSTICK (test code = LEUU) TRACE NEGATIVE A UA WBC (test code = WBCU) #WBC/HPF 0-2 UA RBC (test code = RBCU) #RBC/HPF 0-2 UA BACTERIA (test code = BACU) /HPF NONE-TRACE UA SQUAMOUS CELLS (test code = SQU) /LPF NONE-TRACE Indication for culture: Dysuria/FrequencyNovel Coronavirus 2019 Inhouse 2020-07-28 00:07:00* Test Item Value Reference Range Interpretation Comme nts Novel Coronavirus 2018 Inhouse (test code = COVNONPUI) Not Detected Not Detected Testing was pe rformed using the Aptima SARS-CoV-2 assay.This nucleic acid amplification test was developed and itsperformance characteristics determined by [facility]. Nucleic acid amplification tests include RT-PCR and TMA. This test has not been FDA cleared orapproved. This test has been authorized by FDA under anEmergency Use Authorization (EUA). This test is onlyauthorized for the duration of time the declaration thatcircumstances exist justifying the authorization of theemergency use of in vitro diagnostic tests for detection bnBZQE-PlO-2 virus and/or diagnosis of COVID-19 infectionunder section 564(b)(1) of the Act, 21 U.S.C. 360bbb-3(b)(1), unless the authorization is terminated or revokedsooner.When diagnostic testing is negative, the possibility of afalse negative result should be considered in the contextof a patient's recent exposures and the presence ofclinical signs and symptoms consistent with COVID-19. Anindividual without symptoms of COVID-19 and who is notshedding SARS-CoV-2 virus would expect to have a negative(not detected) result in this assay. - XR CHEST 1 [id number] 13:23:00 [facility] 1990 Sex: FPatient Name: JIMMY ROGERS Unit No: [id number] EXAMS: CPT CODE: [id number] CHEST 1 V 41441 EXAM: XR Chest 1 View INDICATION: PREOP LOCATION CODE: A1 COMPARISON: None available. TECHNIQUE: Frontal view of the chest was obtained. FINDINGS: The lungs are clear. There is nopleural effusion or pneumothorax. The cardiomediastinal silhouette is unremarkable. No acute osseous abnormality is identified. IMPRESSION: No acute cardiopulmonary abnormality. at 1323 Reported and signed by: SURI LUNDY M.D. CC: Lauri Bailey MD Technologist: Mohit Chan Time: DAP (Gy m2): Air Kerma(mGy): Trscr Dt/Tm: 07/26/2020 (1323) by:[email or web address] Printed Date/Time: 07/26/2020 (1326) Name: JIMMY ROGERS [facility] Phys: 01 - Lauri Bailey MD [address] : 1990 Age: 29 Sex: [place] [address] [id number] Loc: P.SRG Exam Date: 07/26/2020 Status: PRE IN PH: FAX: PAGE 1 Signed ReportVITAMIN D [id number] 12:49:00* Test Item Value Reference Range Interpretation Comme nts VITAMIN D 25-HYDROXY (test code = VITD25) 18.20 ng/mL 7-44.0 N Please note: New Reference Range May 2020 INTERPRETATIVE DATA:Suggester guidelines for Vitamin D Levels in serum Vitamin D Status Range, Adult Range, Pediatric ng/mL ng/mLDeficiency <20 <15Insufficiency 20-<30 15-<20 Suffciency 30-100 20-100 COMPREHENSIVE METABOLIC [id number] 12:34:00* Test Item Value Reference Range Interpretation Comme nts SODIUM (test code = NA) 138 mmol/L 136-145 N Please note: New Reference Range May 2020 POTASSIUM (test code = K) 4.2 mmol/L 3.5-5.1 N CHLORIDE (test code = CL) 104 mmol/L 98-107 N Please note: New Reference Range May 2020 CARBON DIOXIDE (test code = CO2) 30 mmol/L 20-31 N Please note: N ew Reference Range May 2020 GLUCOSE (test code = GLU) 93 mg/dL 74-106 N Please note: New Reference Range May 2020 BLOOD UREA NITROGEN (test code = BUN) 19 mg/dL 9-23 N Please note: N ew Reference Range May 2020 GLOMERULAR FILTRATION RATE (test code = GFR) >=60 max estimate >60 The estimated glomerular filtration rate is computed usingpatient race, age (>18), sex, and serum creatinine. If anyof the needed data elements are missing the Laboratory cannot compute an estimation of the glomerular filtration rate. CREATININE (test code = CREAT) 0.60 mg/dL 0.55-1.02 N Please note: New Reference Range May 2020 TOTAL PROTEIN (test code = PROT) 7.4 g/dL 5.7-8.2 N Please note: New Reference Range May 2020 ALBUMIN (test code = ALB) 4.6 g/dL 3.2-4.8 N Please note: New Reference Range May 2020 CALCIUM (test code = CA) 9.7 mg/dL 8.7-10.4 N Please note: New Reference Range May 2020 BILIRUBIN TOTAL (test code = BILT) 0.2 mg/dL 0.3-1.2 L Please note: New Reference Range May 2020 SGOT/AST (test code = AST) 18 U/L <34 N Please note: New Reference Range May 2020 SGPT/ALT (test code = ALT) 20 U/L 10-49 N Please note: New Reference Range May 2020 ALKALINE PHOSPHATASE (test code = ALKP) 71 U/L 46-116 N Please note: New Reference Range May 2020 VITAMIN B1 (THIAMINE)2020-07-26 12:34:00* Test Item Value Reference Range Interpretation Comme nts VITAMIN B1 (THIAMINE) (test code = VITB1) UR HCG [id number] 12:03:00* Test Item Value Reference Range Interpretation Comme nts UR HCG QUAL (test code = HCGQLU) NEGATIVE NEGATIVE PROTHROMBIN [id number] 11:55:00* Test Item Value Reference Range Interpretation Comme nts PROTHROMBIN TIME PATIENT (test code = PTP) 12.8 SECONDS 10.3-12.9 N INTERNATIONAL NORMAL RATIO (test code = INR) 1.13 INR UNIT 0.9-1.11 H The INR is usefu l only for monitoring anticoagulant therapy.It may be unreliable in the initial phase of antigoagulationand in unstable patients. Indication for Anticoagulation Recommended INR 1. Prevention of venous thomboembolism 2.0-3.0in high-risk patients; treatment of venousthrombosis and pulmonary embolism aftera course of heparin; prevention of systemicembolism in a variety of conditions, including atrial fibrillation and prothetic tissue heart valves, 2. Prosthetic mechanical heart valves; 2.5-3.5recurrent systemic embolism. THROMBOPLASTIN TIME [id number] 11:55:00* Test Item Value Reference Range Interpretation Comme nts THROMBOPLASTIN TIME PARTIAL (test code = PTT) 31.9 SECONDS 23.8-34.8 N INTERPRETATIVE DATA:Therapeutic range: Unfractionated heparin:55 - 80 seconds Argatroban:1.5 to 3 times the baseline PTT CBC W/AUTO [id number] 11:37:00* Test Item Value Reference Range Interpretation Comme nts WHITE BLOOD CELL (test code = WBC) 8.8 x10 3/uL 4.8-10.8 N RED BLOOD CELL (test code = RBC) 4.85 x10 6/uL 4.20-5.40 N HEMOGLOBIN (test code = HGB) 13.2 g/dL 12.0-16.0 N HEMATOCRIT (test code = HCT) 40.9 % 37.0-47.0 N MEAN CELL VOLUME (test code = MCV) 84.3 fL 81.0-99.0 N MEAN CELL HGB (test code = MCH) 27.2 pg 27-31 N MEAN CELL HGB CONCENTRATION (test code = MCHC) 32.3 G/DL 33-36.5 L RED CELL DISTRIBUTION WIDTH (test code = RDW) 13.4 % 12.9-16.9 N PLATELET COUNT (test code = PLT) 359 x10 3/uL 150-440 N MEAN PLATELET VOLUME (test c ode = MPV) 10.3 fL 8.9-12.4 N NEUTROPHIL % (test code = NT%) 65.7 [...] = BA#) 0.02 x10 3/uL 0.0-0.20 N Notes Date/Time Note Provider Source 2020-08-05 12:52:00 [id number] [facility] [address] [place] [id number] PATIENT NAME: JIMMY ROGERS ADMIT DATE: 07/29/20 ACCOUNT NO: [id number] ROOM NO: P.0576 AGE: 29 REPORT TYPE: DISCHARGE SUMMARY SEX: F ADMITTING PHYSICIAN:Lauri Bailey MD ATTENDING PHYSICIAN:Lauri Bailey MD ADMISSION DATE: 07/29/2020 DISCHARGE DATE: 07/30/2020 SURGEON: Lauri Bailey MD HOSPITAL COURSE: Ms. Rogers was admitted for laparoscopic bariatric procedure. She did well postoperatively with no events. She was able to tolerate her full liquid diet well and pain was well controlled. The patient was able to be discharged with planned followup in clinic in 1 week. The patient states she was going to will comply with these instructions and was discharged. Dictated By: Lauri Bailey MD WT: DS:DENIS/01/SAVANNAH Conf#: [id number]/DID#: [id number] Authenticated by Lauri Bailey MD On 08/20/2020 07:48:17 AM at 0748 PATIENT NAME: JIMMY ROGERS [facility] 2020-07-29 09:40:00 [id number] [facility] [address] [place] [address] PATIENT NAME: JIMMY ROGERS ADMIT DATE: 07/29/20 ACCOUNT NO: [id number] ROOM NO: P.0576 AGE: 29 REPORT TYPE: OPERATIVE REPORT SEX: F ADMITTING PHYSICIAN:Lauri Bailey MD ATTENDING PHYSICIAN:Lauri Bailey MD OPERATION DATE: SURGEON: Lauri Bailey MD HAND TUBE BENDER: Dr. Pablo Dorado (need for actuarial assistant for appropriate camera holding and retraction. PREOPERATIVE DIAGNOSES: Morbid obesity, BMI of 41. POSTOPERATIVE DIAGNOSIS: Morbid obesity, BMI of 41. PROCEDURES: 1. Laparoscopic sleeve gastrectomy. 2. Intraoperative endoscopy. ANESTHESIA: HISTORY OF PRESENT ILLNESS: Ms. Rogers is a 29-year-old female who has been extensively evaluated for her morbid obesity. Following extensive discussion about risks and benefits of the procedure, decision was made to pursue laparoscopic sleeve gastrectomy. The patient was consented about risks and benefits of the procedure and signed consent. PROCEDURE IN DETAIL: The patient was taken to the operative suite and placed in supine position with her arms out. The patient was placed under general anesthesia without event and was prepped and draped in the usual fashion. Following proper surgical timeout and preoperative antibiotic dosing, a right upper quadrant 5-mm Optiview incision was utilized to enter the abdomen. Abdomen was easily entered and insufflated to 15 mmHg. At this time, infraumbilical 15-mm trocar was placed under direct vision, two left-sided 5-mm trocars were placed under direct vision and the lateral right- sided 5- mm trocars were placed under direct vision. With trocars in good position, liver retractor was brought through most lateral right-sided 5- mm trocar and clear visualization of the hiatus was seen. LigaSure device was used to take down portion of the gastric cardia off of the left ezequiel of the diaphragm. Our attention was then turned to entering the lesser sac. This was turned along the antrum to easily enter the lesser sac and short gastrics were taken down in a distal to proximal fashion with full mobilization of the stomach off the left ezequiel of the diaphragm. With this complete, our attention was turned to identification of the pylorus. Pylorus was easily identified and the measurement 6 cm distal to the pylorus was marked with LigaSure device. Prior to taking down, short gastrics these were then taken down in a proximal to distal fashion to this premeasured spot of 5 cm proximal to the pylorus. With PATIENT NAME: JIMMY ROGERS this complete, stomach was then desufflated and NG tube was removed and a 40-Filipino bougie was easily passed down the mouth into the esophagus and into the stomach. Alongside the 40-Filipino bougie, a black-load stapler with reinforcement was brought alongside. Careful attention was made not to narrow the incisura and a staple firing was made, another firing of the black-load stapler with reinforcements was done alongside the 40-Filipino bougie. Again, careful attention was made not to narrow the incisura and the stapler was fired. The remainder of staple firings were purple load staplers with reinforcement alongside the 40-Filipino bougie for appropriate sizing of the gastric sleeve. Complete separation of the sleeve from the partial gastrectomy specimen was confirmed and a partial gastrectomy specimen was retrieved through dilated 15-mm port. With this complete, I scrubbed out of the case, performed intraoperative endoscopy. Endoscopy showed a normal caliber sleeve without any evidence of intragastric bleed from the staple line. There is no evidence of narrowing at the incisura as well. Endoscope was used to desufflate the stomach and retracted out of the patient and I scrubbed back into the case. Inspection noted good hemostasis. However, there was minimal amount of oozing along the staple line. This was addressed with the clip appliers and the clips in these areas. With this complete, a final inspection noted good hemostasis. All areas with short gastrics had been taken down, showed good hemostasis. 15-mm port was closed with Sai-Campos 0 Vicryl suture and air was aspirated out over the liver given that this was done during the COVID pandemic. All trocars were sequentially removed. Skin was closed with 4-0 Monocryl suture and Dermabond. Dictated By: Lauri Bailey MD WT: OP:DENIS/MELISSA. Conf#: [id number]/DID#: [id number] Authenticated and Edited by Lauri Bailey MD On 07/29/20 7:11:41 PM at 1913 PATIENT NAME: JIMMY ROGERS [facility] 2020-07-26 12:06:00 [id number] [place] [address] PATIENT NAME: JIMMY ROGERS ADMIT DATE: 07/29/20 ACCOUNT NO: [id number] ROOM NO: P.[facility] AGE: 29 REPORT TYPE: eELECTROCARDIOGRAM SEX: F ADMITTING PHYSICIAN: Lauri Bailey MD ATTENDING PHYSICIAN: Lauri Bailey MD Order: [id number] Test Reason : PREOP Test Date/Time Stamp: SunJul 26 2020 12:06:51 Blood Pressure : / mmHG Vent. Rate : 048 BPM Atrial Rate : 048 BPM P-R Int : 172 ms QRS Dur : 102 ms QT Int : 440 ms P-R-T Axes : 041 045 026 degrees QTc Int : 393 ms Sinus bradycardia with sinus arrhythmia Otherwise normal ECG No previous ECGs available Confirmed by MISTY FARRIS, AUNDREA Dan ([id number]) on 07/30/2020 10:29:13 AM Referred By: Lauri Bailey Confirmed by:AUNDREA JAY MD at 1029 PATIENT NAME: JIMMY ROGERS [facility]
[2023-12-16 22:06] LABS: SARS-CoV-2 Antigen CONTROL BLUE LINE VIS/BG OK; SARS-CoV-2 Antigen Rapid Res Positive (Negative)
--- NOTE | 2023-12-16 23:06 | EDPHYS ---
Physician Documentation [facility] Name: Bianca Rogers Age: 33 yrs Sex: Female : 1990 Arrival Date: 12/16/2023 Time: 20:55 Bed IW1 Private MD: ED Physician Trevon Taylor HPI: 12/15 21:34 This 33 yrs old Female presents to ER via Ambulatory with complaints of Cough, kb Congestion, Fever, BODY ACHES. 21:34 Patient is a 33-year-old female who presents for fever, cough, congestion, chills, body kb aches, sore throat that started last night and progressively gotten worse today. Denies any alleviating or aggravating factors. Has taken multiple qnvi-bov-stbkvfz medications with no relief.. 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 - Infectious Disease History:: Denies. - Social history:: Smoking status: Patient denies any tobacco usage or history of. ROS: 21:34 Constitutional: As per HPI kb Exam: 21:34 Constitutional: This is a well developed, well nourished patient who is awake, alert, kb and in no acute distress. Head/Face: Normocephalic, atraumatic. ENT: Moist Mucous membranes Cardiovascular: Regular rate Respiratory: Respirations even and unlabored. No increased work of breathing. Talking in full sentences Skin: Warm, dry with normal turgor. Normal color. MS/ Extremity: Pulses equal, no cyanosis. Neurovascular intact. Full, normal range of motion. Neuro: Awake and alert, GCS 15, oriented to person, place, time, and situation. Moves all extremities. Normal gait. 21:34 ENT: External ear(s): are unremarkable, Ear canal(s): are normal, TM's: are normal, Posterior pharynx: is normal, Vital Signs: 21:32 BP 135 / 95; Pulse 90; Resp 18; Temp 98.9; Pulse Ox 100% ; Weight 64.41 kg; Height 4 bm8 ft. 10 in. ; Pain 6/10; 23:00 BP 128 / 88; Pulse 88; Resp 18; Temp 98.8; Pulse Ox 100% ; vc1 21:32 Body Mass Index 29.68 (64.41 kg, 147.32 cm) bm8 21:32 Pain Scale: Adult bm8 MDM: 20:59 Patient medically screened. 21:34 Differential Diagnosis: Bronchitis Influenza Upper Respiratory Infection Viral Syndrome kb Other COVID. Data reviewed: vital signs, nurses notes. Test considered but Not performed: X-ray: Chest x-ray considered but lungs clear bilaterally, respirations even and unlabored, oxygen saturation 100% on room air. 23:06 I considered the following discharge prescriptions or medication management in the emergency department I discussed and recommended Over The Counter medications, Antivirals: At this time, antivirals are not recommended. Counseling: I had a detailed discussion with the patient and/or guardian regarding the historical points, exam findings, and any diagnostic results supporting the discharge/admit diagnosis, lab results, the need for outpatient follow up, a family practitioner, to return to the emergency department if symptoms worsen or persist or if there are any questions or concerns that arise at home. 12/15 21:34 Order name: Flu; Complete Time: 22:33 kb 12/15 21:34 Order name: SARS-COV-2 Antigen Rapid; Complete Time: 22:33 kb Administered Medications: No medications were administered Disposition: 12/16 04:28 Co-signature as Attending Physician, Trevon Taylor MD I reviewed the patient's care rt provided by the Advanced Practice Provider and agree with the diagnosis and treatment plan. Disposition Summary: 12/16/23 23:05 Discharge Ordered Notes: Location: Home Condition: Stable kb Diagnosis - SARS-associated coronavirus as the cause of diseases classified elsewhere kb Followup: kb - With: Emergency Department - When: As needed - Reason: Worsening of condition Followup: kb - With: Private Physician - When: 2 - 3 days - Reason: Recheck today's complaints, Continuance of care, Re-evaluation by your physician Discharge Instructions: - Discharge Summary Sheet kb - COVID-19 kb - Viral Illness, Adult kb Forms: - Medication Reconciliation Form kb - Antibiotic Education kb - Prescription Opioid Use kb - Patient Portal Instructions kb - Leadership Thank You Letter kb - Work release form al5 Signatures: 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
--- NOTE | 2023-12-16 23:06 | ER ---
Nurse's Notes [facility] Name: Bianca Rogers Age: 33 yrs Sex: Female : 1990 Arrival Date: 12/16/2023 Time: 20:55 Bed IW1 Private MD: Diagnosis: SARS-associated coronavirus as the cause of diseases classified elsewhere Presentation: 12/15 21:32 Chief complaint: Patient states: fever body aches chills, headache sore throat and bm8 congestion that started last night. Coronavirus screen: Vaccine status: Patient reports receiving the 2nd dose of the covid vaccine. Ebola Screen: Patient negative for fever greater than or equal to 101.5 degrees Fahrenheit, and additional compatible Ebola Virus Disease symptoms Patient denies exposure to infectious person. Patient denies travel to an Ebola-affected area in the 21 days before illness onset. No symptoms or risks identified at this time. Initial Sepsis Screen: Does the patient meet any 2 criteria? No. Patient's initial sepsis screen is negative. Does the patient have a suspected source of infection? No. Patient's initial sepsis screen is negative. Risk Assessment: Do you want to hurt yourself or someone else? Patient reports no desire to harm self or others. Onset of symptoms was December 15, 2023 at 18:00. 21:32 Method Of Arrival: Ambulatory bm8 21:32 Acuity: EULOGIO 4 bm8 Triage Assessment: 21:34 General: Appears in no apparent distress. uncomfortable, Behavior is calm, cooperative, bm8 appropriate for age. Pain: Complains of pain in head and gernalized body aches Pain currently is 6 out of 10 on a pain scale. EENT: Nares with drainage noted bilaterally Throat is clear Reports nasal congestion nasal discharge. Neuro: No deficits noted. Level of Consciousness is awake, alert, obeys commands, Oriented to person, place, time, situation, Appropriate for age. Cardiovascular: No deficits noted. Capillary refill < 3 seconds Patient's skin is warm and dry. Respiratory: Airway is patent Respiratory effort is even, unlabored, Respiratory pattern is regular, symmetrical, Breath sounds are clear bilaterally. 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 - Infectious Disease History:: Denies. - Social history:: Smoking status: Patient denies any tobacco usage or history of. Screenin:29 [facility] ED Fall Risk Assessment (Adult) History of falling in the last 3 months, vc1 including since admission No falls in past 3 months (0 pts) Confusion or Disorientation No (0 pts) Intoxicated or Sedated No (0 pts) Impaired Gait No (0 pts) Mobility Assist Device Used No (0 pt) Altered Elimination No (0 pt) Score/Fall Risk Level 0 - 2 = Low Risk Oriented to surroundings, Maintained a safe environment, Educated pt \T\ family on fall prevention, incl call for assistance when getting out of bed. Abuse screen: Denies threats or abuse. Nutritional screening: No deficits noted. Tuberculosis screening: No symptoms or risk factors identified. Vital Signs: 21:32 BP 135 / 95; Pulse 90; Resp 18; Temp 98.9; Pulse Ox 100% ; Weight 64.41 kg; Height 4 bm8 ft. 10 in. ; Pain 6/10; 23:00 BP 128 / 88; Pulse 88; Resp 18; Temp 98.8; Pulse Ox 100% ; vc1 21:32 Body Mass Index 29.68 (64.41 kg, 147.32 cm) bm8 21:32 Pain Scale: Adult bm8 ED Course: 20:58 Patient arrived in ED. jj6 20:59 Queta Hill FNP-C [facility]. kb 20:59 Trevon Taylor MD is Attending Physician. kb 21:34 Triage completed. bm8 21:34 Arm band placed on right wrist. bm8 23:30 discharged from [facility]. Provided Education on: treat symptoms. vc1 23:30 No provider procedures requiring assistance completed. Patient did not have IV access vc1 during this emergency room visit. Administered Medications: No medications were administered Medication: 23:30 VIS not applicable for this client. vc1 Outcome: 23:05 Discharge ordered by . kb 23:30 Discharged to home ambulatory, vc1 23:30 Condition: good 23:30 Discharge instructions given to patient, Instructed on discharge instructions, follow up and referral plans. Demonstrated understanding of instructions, follow-up care, 23:35 Patient left the ED. vc1 Signatures: Queta Hill, IRENEC MACI-Luna Hunt [id number] Elvi Syed, RN RN vc1 Eddie Alvarado RN RN bm8
[2023-12-17 00:53] VITALS: BP 135/95; TEMP 98.9; O2SAT 100
== END 2023-12-16 23:35 | disposition home or self-care (01) ==
LOC: ER 20:55
DX: U07.1 COVID-19 (principal)
CPT/HCPCS: 36415; 87804; 87811; 99283